=== PATIENT | female | born 1955 | race Caucasian/White ===

== ENCOUNTER → 2024-02-22 08:53 | Outpatient (REF) | payer MEDICARE, OTHER, SELFPAY | LOC: PAVMRI 08:53 | PROVIDERS: ATTENDING PHYSICIAN Internal Medicine; FAMILY PHYSICIAN Internal Medicine | DX: R51.9 Headache, unspecified (principal) | CPT/HCPCS: 70553; A9575 ==

== ENCOUNTER → 2024-02-24 08:26 | Outpatient (REF) | payer MEDICARE, OTHER, SELFPAY | LOC: RAD 08:26 | PROVIDERS: ATTENDING PHYSICIAN Internal Medicine | DX: R14.0 Abdominal distension (gaseous) (principal) | CPT/HCPCS: 76700 ==

== ENCOUNTER → 2024-02-25 14:56 | Outpatient (REF) | payer MEDICARE, OTHER, SELFPAY | LOC: WDC 14:56 | PROVIDERS: ATTENDING PHYSICIAN Obstetrics & Gynecology; FAMILY PHYSICIAN Internal Medicine | DX: Z12.31 Encounter for screening mammogram for malignant neoplasm of breast (principal) | CPT/HCPCS: 77063; 77067 ==

== ENCOUNTER 2024-08-07 00:24 | Emergency (ER) | payer MEDICARE, OTHER, SELFPAY ==
[2024-08-07 00:26] VITALS: BP 190/102
[2024-08-07 00:52] VITALS: BMI 32.7
[2024-08-07 00:54] VITALS: BP 123/104
[2024-08-07 00:55] LABS: % Basophils 0.6 % (0-2); % Eosinophils 0.1 % (0-6); % Immature Granulocytes 3.9 % (0-0.5); % Lymphocytes 11.1 % (20.5-51.1); % Monocytes 14.3 % (1.7-9.3); Absolute Immature Granulocytes 0.3 10^3/uL (0-0.05); Absolute Lymphocytes 0.8 10^3/uL (1.2-3.4); Absolute Neutrophils 4.8 10^3/uL (1.4-6.5); Hematocrit 39.1 % (37.0-47.0); Hemoglobin 13.6 g/dL (12.0-16.0); Mean Corp Hgb Conc. 34.8 g/dL (33.0-37.0); Mean Corpuscular Hgb 29.5 pg (27.0-31.0); Mean Corpuscular Volume 84.8 fL (81.0-99.0); Mean Platelet Volume 10.4 fL (7.4-10.4); Nucleated Red Blood Cells % 0 %; Platelet Count 259 10^3/uL (130-400); Red Blood Cell Count 4.61 10^6/uL (4.20-5.40); Red Cell Dist. Width 12.8 % (11.5-14.5); White Blood Cell Count 6.9 10^3/uL (4.8-10.8)
--- NOTE | 2024-08-07 00:58 | ED.GENMED ---
History of Present Illness
<AARON Brown - Last Filed: 08/07/24 03:13>
General
Chief Complaint: Breathing Problem
Source: patient
Exam Limitations: none
Time Seen by Provider: 08/07/24 00:39
Nursing documentation reviewed up to this point in time: agreed with
History of Present Illness
History of Present Illness:
Pt is a 68 yo F with a PMH of asthma, GERD, ADHD, fibromyalgia, anxiety, and seasonal and drug allergies who presents to the ER from home c/o dyspnea, cough, and congestion x 1 week. She explains that she was walking on Wednesday and all of the sudden
became short of breath, she explains she thought perhaps she was having an allergic asthma exacerbation, so returned home and used her albuterol inhaler with some relief. The next day she noticed some congestion, and feared she may be ill, so
contacted her family doctor who prescribed a Medrol dose pack. After a day, this was minimally effective, so added doxycycline. When symptoms persisted, her doctor switched her to Prednisone 40 mg BID which she started on Wednesday. Tonight, she
tried a nebulizer treatment at 23:30 which she states was ineffective. She notes that it appears her nebulizer solution may have in 2021, which she found to be ineffective. She also notes some mild chills on occasion, but denies fevers. She
presents tonight because she says her symptoms have not improved and notes 'my doctor didn't answer'. She explains that usually when things like this happen, her doctor will prescribe a 'high dose' course of prednisone, starting with 4 pills per day
and tapering down. She notes she did a COVID test at home which was negative. She denies sick contacts but does note that last weekend she held a gathering at her home for the first time in a long time. She denies fevers, nausea, vomiting, changes
to her bowel movements, ESCOBAR, dizziness, or any other associated symptoms.
Past History
<AARON Brown - Last Filed: 08/07/24 03:13>
Past History
ED Past Medical History: Asthma, Fibromyalgia, GERD, HTN, Hypercholesterolemia, Psychiatric (Depression) and Other (Lymes disease X2 , Sleep apnea with 2 surgery for this, gastroparesis, chronic abdominal pain, chronic pain syndrome)
ED Past Surgical History: Cardiac (Stent RCA Nov 2016), Cholecystectomy, Orthopedic (Bilateral knee replacement, right foot surgery), Tonsilectomy and Other (Breast reduction surgery, throat surgery, Tummy tuck)
Patient has exhibited threatening behavior?: No
Social History
Tobacco: Former smoker
Alcohol: Occasional
Drug: None and Other (Medical marijuana for chronic pain)
Personal:
Living: alone
Employment: Not employed
Family History
Family History: CAD and Other
Review of Systems
<ST KevinHI - Last Filed: 08/07/24 03:13>
Review of Systems
All Other Systems: ROS reviewed and negative except as documented in HPI and ROS
Phy Exam
<Licha Pope [facility] - Last Filed: 08/07/24 03:13>
General Physical Exam
General Presentation: well appearing
General age: appears stated age
General Skin: warm and dry
General Habitus: normal and elderly
General Mental: alert
General Hydration: appears well hydrated
Cardiovascular Exam
Cardiovascular Exam: regular rate/rhythm
Heart Sounds: normal
Pulmonary Exam
Pulmonary Exam: generalized wheezing
Oxygen Status: room air
Cough: non productive cough
Breath Sounds: Wheeze: generalized
Gastrointestinal Exam
Gastrointestinal Exam: normal bowel sounds
Scores
<Sendy Israel DO - Last Filed: 08/07/24 03:33>
Heart Failure Risk
Heart Failure Risk Score: Yes
History of Stroke or TIA: Yes
History of intubation for respiratory distress: No
Heart rate on ED arrival >/= 110: No
SaO2 <90% on arrival on room air: No
HR >/=110 during 3min walk test (or too ill to perform test): No
ECG has acute ischemic changes: No
Urea >/=12mmol/L (BUN 33.6mg/dL): No
Serum CO2>/=35mmol/L: No
Troponin I or T elevated to PR Level (0.4mg/dL): No
NT-proBNP >/=5,000ng/L (5,000pg/ml): No
HF Risk Score: 1
Admission Status: MEDIUM RISK 5.1% Consider observation or discharge to home with homecare & f/u visit to PCP/[facility], or SNF for treatment
Sepsis
<AARON Brown - Last Filed: 08/07/24 03:13>
Sepsis Screening
Sepsis Assessment: Sepsis Ruled Out
Sepsis Screen
Sepsis Screen: Sepsis Ruled Out
Date: 08/07/24
Time: 03:13
<Sendy Israel DO - Last Filed: 08/07/24 03:33>
Sepsis Screen
Sepsis Screen: Sepsis Ruled Out
Date: 08/07/24
Time: 03:14
Course
<AARON Brown - Last Filed: 08/07/24 03:13>
Orders/Labs/Results
Orders:
Orders
08/07/24 00:45
CR Chest - 2 Views Urgent
Comment:
Reason For Exam: cough, SOB
08/07/24 00:46
Electrocardiogram (*1) Urgent
Reason for Study: Shortness of Breath
EKG- Treatment ONCE
08/07/24 00:49
Complete Blood Count/With Diff Urgent
Comprehensive Metabolic Panel Urgent
Lactic Acid Q4H
Comment: CANCEL 2nd LACTIC ACID IF 1st LACTIC ACID IS LESS THAN 2
NT-proBNP Urgent
08/07/24 00:53
COVID-19 Antigen Urgent
Source: Nasal Swab
Influenza A+B Rapid Molecular Urgent
JUAN Source: Nasal Swab
Specimen Description:
08/07/24 01:19
Albuterol Sulfate [Ventolin Nebules] 7.5 mg INH R NOW STA
Dexamethasone Sod Phosphate [Decadron] 10 mg IV NOW STA
Ipratropium Nebs [Atrovent Nebules] 0.5 mg INH R NOW STA
Abnormal Lab Results
08/07/24
00:49
Abs Immat Gran (auto) 0.3 H 10^3/uL
(0-0.05)
Absolute Lymphs (auto) 0.8 L 10^3/uL
(1.2-3.4)
Absolute Monos (auto) 1.0 H 10^3/uL
(0.1-0.6)
Immature Gran % 3.9 H %
(0-0.5)
Lymphocytes % 11.1 L %
(20.5-51.1)
Monocytes % 14.3 H %
(1.7-9.3)
Potassium 3.0 L mmol/L
(3.5-5.1)
Chloride 108 H mmol/L
(98-107)
BUN 21 H mg/dl
(7-17)
Glucose 122 H mg/dl
(70-99)
08/07/24 00:49
08/07/24 00:49
Vital Signs
Initial and Last Documented VS:
Initial Vital Signs
Temp Pulse Resp BP Pulse Ox
99 F 98 26 190/102 96
08/07/24 00:26 08/07/24 00:26 08/07/24 00:26 08/07/24 00:26 08/07/24 00:26
Last Documented Vital Signs
Temp Pulse Resp BP Pulse Ox
99 F 87 20 190/102 95
08/07/24 00:26 08/07/24 00:49 08/07/24 00:49 08/07/24 00:26 08/07/24 00:49
<Sendy Israel, - Last Filed: 08/07/24 03:33>
Orders/Labs/Results
Orders:
Orders
08/07/24 00:45
CR Chest - 2 Views Urgent
Comment:
Reason For Exam: cough, SOB
08/07/24 00:46
Electrocardiogram (*1) Urgent
Reason for Study: Shortness of Breath
EKG- Treatment ONCE
08/07/24 00:49
Complete Blood Count/With Diff Urgent
Comprehensive Metabolic Panel Urgent
Lactic Acid Q4H
Comment: CANCEL 2nd LACTIC ACID IF 1st LACTIC ACID IS LESS THAN 2
NT-proBNP Urgent
08/07/24 00:53
COVID-19 Antigen Urgent
Source: Nasal Swab
Influenza A+B Rapid Molecular Urgent
JUAN Source: Nasal Swab
Specimen Description:
08/07/24 01:19
Albuterol Sulfate [Ventolin Nebules] 7.5 mg INH R NOW STA
Dexamethasone Sod Phosphate [Decadron] 10 mg IV NOW STA
Ipratropium Nebs [Atrovent Nebules] 0.5 mg INH R NOW STA
Abnormal Lab Results
08/07/24
00:49
Abs Immat Gran (auto) 0.3 H 10^3/uL
(0-0.05)
Absolute Lymphs (auto) 0.8 L 10^3/uL
(1.2-3.4)
Absolute Monos (auto) 1.0 H 10^3/uL
(0.1-0.6)
Immature Gran % 3.9 H %
(0-0.5)
Lymphocytes % 11.1 L %
(20.5-51.1)
Monocytes % 14.3 H %
(1.7-9.3)
Potassium 3.0 L mmol/L
(3.5-5.1)
Chloride 108 H mmol/L
(98-107)
BUN 21 H mg/dl
(7-17)
Glucose 122 H mg/dl
(70-99)
08/07/24 00:49
08/07/24 00:49
Vital Signs
Initial and Last Documented VS:
Initial Vital Signs
Temp Pulse Resp BP Pulse Ox
99 F 98 26 190/102 96
08/07/24 00:26 08/07/24 00:26 08/07/24 00:26 08/07/24 00:26 08/07/24 00:26
Last Documented Vital Signs
Temp Pulse Resp BP Pulse Ox
99 F 87 20 190/102 95
08/07/24 00:26 08/07/24 00:49 08/07/24 00:49 08/07/24 00:26 08/07/24 00:49
<Sendy Israel, DO - Last Filed: 08/07/24 03:33>
*Radiology
Radiology exam reviewed: preliminary read by ED provider (Chest x-ray is unremarkable. Clear lung tafoya. Unchanged from previous 2020.)
*Pulse Oximetry
Patient hypoxic: no
*EKG
Interpreted by ED Provider?: Yes
Interpretation: normal
Comparison EKG: no changes (Unchanged from previous 2020)
Rate: normal
Rhythm: sinus and PAC's
[place]: normal axis
Interval: normal interval
QRS Pattern: normal QRS
Ischemia: no ischemia
*Curtain Cutter Interpretation
Rate: normal
Interpretation: normal
Rhythm: sinus, PAC's and PVC's
*Critical Care Note
Total Time (30-74mins, 75-104mins- exclusive of procedures): Not Applicable
<AARON Brown - Last Filed: 08/07/24 03:13>
Update Note
Update Note:
Patient is feeling much better after receiving IV Decadron and nebulizer treatment
ED Attending Note
<AARON Brown - Last Filed: 08/07/24 03:13>
-
Portions of this chart may have been created with voice recognition software.� Occasional wrong word or��sound alike� substitutions may have occurred due to the inherent limitations of voice recognition software.
<Sendy Israel DO - Last Filed: 08/07/24 03:33>
ED Attending Note
Patient seen and examined by attending physician: Yes
I performed the substantive portion of visit, reviewed & personally made and approve the management plan that is documented in note by myself or JUAN.: Yes
ED Attending Note:
This is a 68-year-old woman with history of intermittent asthma, seasonal allergies, GERD, hypertension, CAD with prior history of stents. She states asthma is generally well-controlled with exacerbations occurring with URIs. She complains of URI
that began earlier in the week with nasal congestion, cough. Spoke with her PCP on August 02 and a Medrol Dosepak was called to her pharmacy. With worsening symptoms she was evaluated by her PCP on August 04 and was started on
doxycycline as well as 4-day course of prednisone 40 mg twice daily. Along with this she has been using her albuterol inhaler and initially was using her nebulizer unit but then noted that her Nebules were not albuterol but instead saline solution.
She has not had a fever, she does note moderate nasal congestion and continued cough, wheezing, worse throughout the day today. She denies leg pain or swelling, denies chest pain. Cough has been hacking, nonproductive.
Home COVID testing has been negative.
No recent travel nor close contacts with similar symptoms.
Symptoms feel very similar to previous episodes of asthma exacerbation.
GENERAL: 68-year-old woman appears her stated age, awake and alert, pleasant. Noted to have moderate nasal, stuffy voice and frequent dry hacking cough with mild tachypnea but able to speak in full sentences. Moderately hypertensive and
questionable low-grade fever with oral temperature 99 �F. Afebrile upon recheck.
EYE: pupils equal. anicteric
NECK: Supple, nontender, no meningismus, no significant adenopathy. No JVD.
ENT: posterior pharynx is without injection or edema, scant clear to pearly postnasal drip is noted, oral mucosa is moist. TM clear b/l, moderately boggy pale blue turbinates with mild clear rhinorrhea.
CARDIAC: Regular rate and rhythm. no murmur.
LUNGS: Mild resting tachypnea with scattered expiratory wheezing bilaterally, no rales or rhonchi.
ABDOMEN: Soft, nondistended, without focal tenderness
NEUROLOGICAL: Alert and oriented x3, no focal neuro deficits.
SKIN: Warm and dry, normal color, skin intact. No rash.
MUSCULOSKELETAL: No C/C/E. peripheral pulses are full and equal b/l. No palpable tenderness.
PSYCH: Normal and appropriate interaction.
Concern for exacerbation of asthma, pneumonia. With history of CAD must also consider CHF however patient reports no prior history of CHF, no history of cardiomyopathy.
EKG is reassuring, unchanged from previous.
Will check labs including BNP.
Will check chest x-ray.
Will give hour-long nebulizer as well as an IV dose of Decadron.
03:20
Patient feeling markedly improved with marked improvement in cough, no further dyspnea.
Lungs with marked improvement in air movement and only scant end expiratory scattered wheezing.
She does continue with moderate nasal congestion but able to speak in full sentences. She remains afebrile.
Initial hypertension has markedly improved.
Chest x-ray is unremarkable, no evidence of infiltrate nor CHF. Overall similar and unchanged from previous 2020.
Labs are unremarkable save for mild hypokalemia at 3.0. BNP 430.
Will repeat potassium orally.
Patient eager to be discharged to home.
Recommend continuing doxycycline until finished, continue current course of prednisone 40 mg twice daily over the next 2 days then will transition to prednisone taper at 50 mg daily for 3 days�then taper from there.
Recommend continuing albuterol inhaler versus albuterol nebulizer every 4 hours as needed for cough, wheezing.
Okay to add antihistamine such as Ne and continue steroid nasal spray. Discussed importance of avoiding decongestants.
Stay well-hydrated on a daily basis.
Prompt follow-up with PCP for recheck.
Return precautions discussed.
Discharge Plan
Departure
Patient Disposition: Home (Routine Discharge)
Date of Disposition: 08/07/24
Time of Disposition: 03:14
Patient with high blood pressure during this ER visit?: Yes
Discharge Problem:
Acute asthma exacerbation
Instructions: Asthma, Adult (DC)
Prescriptions:
New
prednisone 10 mg Tablet
See Rx Instructions .ROUTE .COMPLEX Qty: 45 0RF
Rx Instructions:
Take By Mouth:
50 mg daily x3 days, 40 mg daily x3 days,
30 mg daily x3 days, 20 mg daily x3 days,
10 mg daily x3 days
No Action
albuterol sulfate 1 PUFF HFA aerosol inhaler
2 puff inhalation R Q4 PRN (Reason: sob/wheezing)
dextroamphetamine-amphetamine 15 MG tablet
15 mg PO DAILY PRN (Reason: focus)
Patient Comments:
10/30/2022: last filled 10/28/22, 20 tabs for 20 days from [id number]
fluticasone propion-salmeterol [Advair HFA] 1 PUFF HFA aerosol inhaler
2 puff inhalation R BID PRN (Reason: Lung/breathing issues)
Xolair 75 MG/VIAL recon soln
120 mg SQ MONTHLY
Patient Comments:
x2
tramadol 50 mg tablet
50 mg PO TID PRN (Reason: moderate pain)
Patient Comments:
10/30/2022: last filled 10/10/22, 90 tabs for 30 days from [id number]
gabapentin 100 mg capsule
200 mg PO HS
Xhance 93 mcg/actuation aerosol breath activated
1 spray INTRANASAL BID
amoxicillin-pot clavulanate 875-125 mg tablet
1 tab PO Q12H Qty: 10 0RF
Referrals:
Calvin Moran MD [Family Provider] - Call in 1-3 days for appt
Interventions
Interventions:
*Risk Screen - Suicide Last Done: 08/07/24 00:26
*General Assessment Last Done: 08/07/24 00:52
*Neglect/Abuse Screening Last Done: 08/07/24 00:26
*ED- Fall Risk Assessment Last Done: 08/07/24 00:52
*ED COVID-19 Vaccine History Last Done: 08/07/24 00:59
ED- Cardiac Assessment Last Done: 08/07/24 00:56
ED- Pulmonary Assessment Last Done: 08/07/24 00:56
Discharge Date and Time
Print Language: CAMEROONIAN
[2024-08-07 01:07] LABS: Lactic Acid 1.3 mmol/L (0.7-2.0)
[2024-08-07 01:15] LABS: ALT (SGPT) 23 U/L (0-35); AST (SGOT) 24 U/L (14-36); Albumin 3.9 g/dl (3.5-5.0); Alkaline Phosphatase 59 U/L (38-126); Blood Urea Nitrogen 21 mg/dl (7-17); Carbon Dioxide 26 mmol/L (22-30); Chloride 108 mmol/L (98-107); Estimated Creatinine Clearance 74 ml/min; Glucose 122 mg/dl (70-99); Sodium 138 mmol/L (135-145); Total Bilirubin 0.5 mg/dl (0.2-1.3); Total Protein 6.5 g/dl (6.3-8.2); eGFR > 60.00
[2024-08-07 01:16] LABS: NT-proBNP 435 pg/ml
[2024-08-07 01:26] LABS: COVID-19 Antigen Negative (Negative)
[2024-08-07] MEDS: VENTOLIN NEBULES 7.5 MG INH (01:34)
[2024-08-07] MEDS: DECADRON 10 MG IV (01:37)
[2024-08-07] MEDS: ATROVENT NEBULES 0.5 MG INH (01:38)
[2024-08-07 02:00] VITALS: BP 152/68
[2024-08-07] MEDS: KCL 20 MEQ PO (03:22)
== END 2024-08-07 03:55 | disposition home or self-care (01) ==
LOC: EMR 00:24
PROVIDERS: EMERGENCY PHYSICIAN Emergency Medicine; FAMILY PHYSICIAN Internal Medicine
DX: J45.901 Unspecified asthma with (acute) exacerbation (principal); R68.83 Chills (without fever); Z11.52 Encounter for screening for COVID-19; K21.9 Gastro-esophageal reflux disease without esophagitis; R10.9 Unspecified abdominal pain; F90.9 Attention-deficit hyperactivity disorder, unspecified type; M79.7 Fibromyalgia; F41.9 Anxiety disorder, unspecified; G47.30 Sleep apnea, unspecified; I25.10 Atherosclerotic heart disease of native coronary artery without angina pectoris; E78.00 Pure hypercholesterolemia, unspecified; G89.4 Chronic pain syndrome; I10 Essential (primary) hypertension; F32.A Depression, unspecified; F43.10 Post-traumatic stress disorder, unspecified; K31.84 Gastroparesis; Z90.49 Acquired absence of other specified parts of digestive tract; Z96.653 Presence of artificial knee joint, bilateral; Z95.5 Presence of coronary angioplasty implant and graft; Z87.891 Personal history of nicotine dependence; Z88.6 Allergy status to analgesic agent; Z88.1 Allergy status to other antibiotic agents; Z91.040 Latex allergy status; Z88.5 Allergy status to narcotic agent; Z88.8 Allergy status to other drugs, medicaments and biological substances; Z91.048 Other nonmedicinal substance allergy status
CPT/HCPCS: 99284; 96374; 94644; 94640; 71046; 80053; 83605; 83880; 85025; 87502; 87811; 93005

== ENCOUNTER 2024-09-12 03:59 | Emergency (ER) | payer MEDICARE, OTHER, SELFPAY ==
[2024-09-12 04:01] VITALS: BP 188/114
[2024-09-12 04:21] VITALS: BMI 32.7
[2024-09-12 04:28] VITALS: BP 190/92
--- NOTE | 2024-09-12 04:38 | ED.GENMED ---
History of Present Illness
General
Chief Complaint: Headache
Source: patient and previous hospital records (ED visit July of this year with complaints of asthma exacerbation)
Exam Limitations: none
Time Seen by Provider: 09/12/24 04:24
Nursing documentation reviewed up to this point in time: agreed with
History of Present Illness
History of Present Illness:
This is a 68-year-old woman with history of intermittent asthma, seasonal allergies, GERD, hypertension, CAD with prior history of stents. She initially presented to this ED August 07 with complaints of acute exacerbation of asthma with URI symptoms
that began earlier in the week. She was noted to have moderately elevated blood pressure, wheezing.
BP improved with nebulizer treatment and improvement in symptoms.
Unremarkable laboratory studies as well as unremarkable chest x-ray.
Since that ED visit patient has been following regularly with her PCP with ongoing sinus issues, chronic sinus headache, sinus congestion and has been treated with several rounds of antibiotics as well as oral steroids.
She has an initial appointment with ENT specialist September 18 and has an appointment for CAT scan of her sinuses later today.
A week and a half ago she suffered a mechanical fall, falling backward with lightly striking the back of her head. She denies loss of consciousness, denies dizziness nor lightheadedness but notes increase in her headache over the past week and a
half after that fall. She denies neck nor back pain. She has not had a fever nor chills. No vision difficulty. She admits to occasional nausea without vomiting. No chest nor abdominal pain.
Currently on a course of doxycycline for sinusitis and was also started on Lexapro.
She notes her blood pressure has been elevated over the past month. She is chronically maintained on Bystolic 5 mg daily. No recent change in antihypertensives. Upon review of external medical summary patient has history of accelerated essential
hypertension diagnoses on multiple outpatient visits over the past several years.
Cough and shortness of breath have markedly improved/resolved.
No change in weight. She denies leg pain or swelling.
Past History
Past History
ED Past Medical History: Asthma, Fibromyalgia, GERD, HTN, Hypercholesterolemia, Psychiatric (Depression) and Other (Lymes disease X2 , Sleep apnea with 2 surgery for this, gastroparesis, chronic abdominal pain, chronic pain syndrome; chronic
headaches)
ED Past Surgical History: Cardiac (Stent RCA Nov 2016), Cholecystectomy, Orthopedic (Bilateral knee replacement, right foot surgery), Tonsilectomy and Other (Breast reduction surgery, throat surgery, Tummy tuck)
Patient has exhibited threatening behavior?: No
Social History
Tobacco: Former smoker
Alcohol: Occasional
Drug: None and Other (Medical marijuana for chronic pain)
Personal:
Living: alone
Employment: Not employed
Family History
Family History: CAD and Other
Phy Exam
Physical Exam
Physical Exam:
GENERAL: 68-year-old woman appears her stated age, awake and alert, appears mildly anxious but overall in no acute distress. Mild nasal, stuffy voice is noted. Moderately hypertensive. Afebrile.
EYE: pupils equal and reactive. Extraocular muscles intact. Anicteric
NECK: Supple, nontender, no meningismus, no significant adenopathy. No midline bony tenderness. Full range of motion without difficulty nor pain.
ENT: posterior pharynx is clear, oral mucosa is moist. TM clear b/l, nares have moderately boggy turbinates with white pearly mucopus within the left nostril.
CARDIAC: Regular rate and rhythm. no murmur.
LUNGS: Clear breath sounds bilaterally, no acute respiratory distress, no wheezes/rales/rhonchi
ABDOMEN: Soft, nondistended, without focal tenderness, no r/g, no cvat. normoactive BS.
NEUROLOGICAL: Alert and oriented x3, no focal neuro deficits. Gait is steady.
SKIN: Warm and dry, normal color, skin intact. No rash.
MUSCULOSKELETAL: No C/C/E. peripheral pulses are full and equal b/l. No palpable tenderness.
PSYCH: Normal and appropriate interaction.
Course
Orders/Labs/Results
Orders:
Orders
09/12/24 04:37
CT Head W/o Iv Contrast Urgent
Comment:
Reason For Exam: persistent headache x 1 month
Diphenhydramine [Benadryl] 25 mg IV NOW STA
Metoclopramide [Reglan] 10 mg IV NOW STA
09/12/24 04:51
Complete Blood Count/With Diff Urgent
Comprehensive Metabolic Panel Urgent
Abnormal Lab Results
09/12/24
04:51
Abs Immat Gran (auto) 0.2 H 10^3/uL
(0-0.05)
Absolute Monos (auto) 0.8 H 10^3/uL
(0.1-0.6)
Immature Gran % 2.8 H %
(0-0.5)
Monocytes % 10.3 H %
(1.7-9.3)
Glucose 105 H mg/dl
(70-99)
Total Protein 6.0 L g/dl
(6.3-8.2)
09/12/24 04:51
09/12/24 04:51
Vital Signs
Initial and Last Documented VS:
Initial Vital Signs
Temp Pulse Resp BP Pulse Ox
98.2 F 74 26 188/114 97
09/12/24 04:01 09/12/24 04:01 09/12/24 04:01 09/12/24 04:01 09/12/24 04:01
Last Documented Vital Signs
Temp Pulse Resp BP Pulse Ox
98.2 F 74 26 190/92 95
09/12/24 04:01 09/12/24 04:01 09/12/24 04:01 09/12/24 04:28 09/12/24 05:03
MDM/Problems Addressed
Differential Diagnosis Includes:
Concern for chronic sinusitis, chronic sinus headache versus tension headache. With history of fall and head injury a week and a half ago must also consider closed head injury thus we will check CT of the head.
Patient noted to be moderately hypertensive and similar hypertension noted on previous visit in July and according to prior records has had similar elevated blood pressure on previous visits.
Will check labs, assess for endorgan damage.
Will trial an IV dose of Reglan and Benadryl for headache and will check CT of the head.
MDM/Problems Addressed:
Hypertension, acute on chronic headache, recent fall with head injury.
Chronic conditions affecting care: HTN, CAD, Neurological disorder (Chronic headaches) and Psychiatric illness
Acute Exacerbation and/or Progression of Chronic Illness: HTN and Neurological disorder (Chronic headache)
*Radiology
Radiology exam reviewed: radiology read reviewed (CAT scan shows chronic microvascular disease with old left MCA infarct. Right parietal hemangioma unchanged from previous CT 2020.)
*Pulse Oximetry
SaO2: 95
Oxygen Mode of Delivery: Room air
Patient hypoxic: no
*Critical Care Note
Total Time (30-74mins, 75-104mins- exclusive of procedures): Not Applicable
Update Note
Update Note:
Patient reassessed.
Resting comfortably with near complete relief of headache.
Blood pressure improving, systolic now at 150-160.
CT of the head shows chronic microvascular changes, old left MCA territory infarct as well as right parietal hemangioma all unchanged from previous CT 2020 and upon review of records similar to MRI of the brain performed February 2024.
Labs are unremarkable.
Patient does note somewhat chronic frequent headaches and I suspect her headaches are migraine versus sinus headache versus a combination of both.
She also has longstanding history of accelerated hypertension. Appears to have adverse reactions to multiple different medications thus recommend she follow-up with her PCP for recheck and BP med adjustment.
Recommend she complete CT of the sinuses that is scheduled for today and follow-up with ENT as scheduled September 18.
Could consider neurology evaluation regarding chronic headaches as well but can discuss further with her PCP.
ED Attending Note
-
Portions of this chart may have been created with voice recognition software.� Occasional wrong word or��sound alike� substitutions may have occurred due to the inherent limitations of voice recognition software.
Discharge Plan
Departure
Patient Disposition: Home (Routine Discharge)
Date of Disposition: 09/12/24
Time of Disposition: 06:28
Patient with high blood pressure during this ER visit?: No
Condition: Good
Discharge Problem:
chronic migraine vs sinus headache, Accelerated essential hypertension
Instructions: High blood pressure in adults, Migraines (DC)
Prescriptions:
No Action
albuterol sulfate 1 PUFF HFA aerosol inhaler
2 puff inhalation R Q4 PRN (Reason: sob/wheezing)
dextroamphetamine-amphetamine 15 MG tablet
15 mg PO DAILY PRN (Reason: focus)
Patient Comments:
10/30/2022: last filled 10/28/22, 20 tabs for 20 days from [facility]#[id number]
fluticasone propion-salmeterol [Advair HFA] 1 PUFF HFA aerosol inhaler
2 puff inhalation R BID PRN (Reason: Lung/breathing issues)
Xolair 75 MG/VIAL recon soln
120 mg SQ MONTHLY
Patient Comments:
x2
tramadol 50 mg tablet
50 mg PO TID PRN (Reason: moderate pain)
Patient Comments:
10/30/2022: last filled 10/10/22, 90 tabs for 30 days from [facility][id number]
gabapentin 100 mg capsule
200 mg PO HS
Xhance 93 mcg/actuation aerosol breath activated
1 spray INTRANASAL BID
amoxicillin-pot clavulanate 875-125 mg tablet
1 tab PO Q12H Qty: 10 0RF
prednisone 10 mg Tablet
See Rx Instructions .ROUTE .COMPLEX Qty: 45 0RF
Rx Instructions:
Take By Mouth:
50 mg daily x3 days, 40 mg daily x3 days,
30 mg daily x3 days, 20 mg daily x3 days,
10 mg daily x3 days
Referrals:
Zakrzewski,Calvin, MD [Family Provider, Internal Medicine] - Call in 1-3 days for appt
Activity Restrictions/Additional Instructions:
Continue current antibiotic until finished.
Continue current blood pressure medication/Bystolic 5 mg and follow-up with your PCP for recheck.
Follow-up with ENT specialist September 18 as already scheduled.
Interventions
Interventions:
*Risk Screen - Suicide Last Done: 09/12/24 04:01
*General Assessment Last Done: 09/12/24 04:21
*Neglect/Abuse Screening Last Done: 09/12/24 04:01
*ED- Fall Risk Assessment Last Done: 09/12/24 04:21
*ED COVID-19 Vaccine History Last Done: 09/12/24 04:21
ED- Neurological Assessment Last Done: 09/12/24 04:21
Discharge Date and Time
Print Language: ITALIAN
[2024-09-12] MEDS: REGLAN 10 MG IV (04:55)
[2024-09-12] MEDS: BENADRYL 25 MG IV (04:55)
[2024-09-12 05:00] LABS: Hematocrit 38.1 % (37.0-47.0); Hemoglobin 12.9 g/dL (12.0-16.0); Mean Corp Hgb Conc. 33.9 g/dL (33.0-37.0); Mean Corpuscular Volume 86.4 fL (81.0-99.0); Nucleated Red Blood Cells % 0 %; Platelet Count 273 10^3/uL (130-400); Red Cell Dist. Width 13.1 % (11.5-14.5)
[2024-09-12 05:34] LABS: ALT (SGPT) 24 U/L (0-35); AST (SGOT) 24 U/L (14-36); Albumin 3.6 g/dl (3.5-5.0); Alkaline Phosphatase 75 U/L (38-126); Blood Urea Nitrogen 16 mg/dl (7-17); Calcium 8.9 mg/dl (8.4-10.2); Carbon Dioxide 26 mmol/L (22-30); Chloride 107 mmol/L (98-107); Estimated Creatinine Clearance 86 ml/min; Glucose 105 mg/dl (70-99); Potassium 4.1 mmol/L (3.5-5.1); Sodium 138 mmol/L (135-145); Total Protein 6.0 g/dl (6.3-8.2); eGFR > 60.00
[2024-09-12 06:01] VITALS: BP 165/82
== END 2024-09-12 07:09 | disposition home or self-care (01) ==
LOC: EMR 03:59
PROVIDERS: EMERGENCY PHYSICIAN Emergency Medicine; FAMILY PHYSICIAN Internal Medicine
DX: R51.9 Headache, unspecified (principal); R09.89 Other specified symptoms and signs involving the circulatory and respiratory systems; I10 Essential (primary) hypertension; J45.20 Mild intermittent asthma, uncomplicated; K21.9 Gastro-esophageal reflux disease without esophagitis; I25.10 Atherosclerotic heart disease of native coronary artery without angina pectoris; G93.89 Other specified disorders of brain; R10.9 Unspecified abdominal pain; M79.7 Fibromyalgia; E78.00 Pure hypercholesterolemia, unspecified; G47.30 Sleep apnea, unspecified; F32.A Depression, unspecified; F12.90 Cannabis use, unspecified, uncomplicated; G89.4 Chronic pain syndrome; K31.84 Gastroparesis; Z79.899 Other long term (current) drug therapy; Z91.81 History of falling; Z95.5 Presence of coronary angioplasty implant and graft; Z96.653 Presence of artificial knee joint, bilateral; Z87.891 Personal history of nicotine dependence; Z90.49 Acquired absence of other specified parts of digestive tract; Z88.5 Allergy status to narcotic agent; Z88.8 Allergy status to other drugs, medicaments and biological substances; Z88.6 Allergy status to analgesic agent; Z88.1 Allergy status to other antibiotic agents; Z91.040 Latex allergy status
CPT/HCPCS: 99284; 96374; 96375; 70450; 80053; 85025

== ENCOUNTER 2024-09-12 21:24 | Emergency (ER) | payer MEDICARE, OTHER, SELFPAY ==
[2024-09-12 21:33] VITALS: BP 149/116
[2024-09-12 23:20] VITALS: BP 169/88
[2024-09-12 23:35] LABS: Hematocrit 42.0 % (37.0-47.0); Hemoglobin 14.4 g/dL (12.0-16.0); Mean Corp Hgb Conc. 34.3 g/dL (33.0-37.0); Mean Corpuscular Volume 86.1 fL (81.0-99.0); Nucleated Red Blood Cells % 0 %; Platelet Count 296 10^3/uL (130-400); Red Cell Dist. Width 13.2 % (11.5-14.5)
[2024-09-13] VITALS: BP 158/87
[2024-09-13] LABS: ALT (SGPT) 29 U/L (0-35); AST (SGOT) 31 U/L (14-36); Albumin 4.3 g/dl (3.5-5.0); Alkaline Phosphatase 73 U/L (38-126); Blood Urea Nitrogen 12 mg/dl (7-17); Calcium 9.0 mg/dl (8.4-10.2); Carbon Dioxide 26 mmol/L (22-30); Chloride 106 mmol/L (98-107); Glucose 112 mg/dl (70-99); Potassium 4.1 mmol/L (3.5-5.1); Sodium 138 mmol/L (135-145); Total Protein 7.0 g/dl (6.3-8.2); eGFR > 60.00
[2024-09-13] MEDS: REGLAN 10 MG IV (00:22)
[2024-09-13] MEDS: TORADOL 15 MG IV (00:22)
[2024-09-13] MEDS: BENADRYL 25 MG IV (00:22)
[2024-09-13 01:04] VITALS: BP 167/82
--- NOTE | 2024-09-13 01:48 | EDRN ---
Patient reports feeling better and ready to go home, Dr. Lima aware
--- NOTE | 2024-09-13 01:50 | ED.GENMED ---
History of Present Illness
General
Chief Complaint: Blood Pressure Problem
Source: patient and family
Exam Limitations: none
Time Seen by Provider: 09/13/24 00:02
Nursing documentation reviewed up to this point in time: agreed with
History of Present Illness
History of Present Illness:
Note:
CHIEF COMPLAINT(S)
headache, elevated blood pressure,
HISTORY OF PRESENT ILLNESS
The patient is a 68-year-old female presenting with a headache associated with heartburn and chest congestion. The patient reports that this started as an allergic reaction weeks ago, resulting in significant congestion and difficulty breathing,
prompting an earlier visit to the emergency department. At that time, her blood pressure was recorded at 184/111 mmHg. She was administered intravenous diphenhydramine and blood pressure medications, which reduced her blood pressure to 160 mmHg. The
patient was discharged with instructions to take antihypertensive medication, but she reports not having the medication. Subsequently, she has experienced recurrent headaches, along with fluctuating blood pressure readings.
The patient mentions that she attempted to contact her regular physician and aerial crop duster without immediate success. She acknowledges a plan to see a aerial crop duster in the coming days and requests a temporary antihypertensive treatment to manage her
blood pressure until then.
Review of Systems includes headache, subacute chest congestion, and difficulty breathing. She reports no relief following previous treatment for her headache.
EXTERNAL RECORDS REVIEWED
The patient referred to a recent visit for imaging studies, though results were not yet provided for interpretation.
PHYSICAL EXAM
- Nursing notes reviewed and vital signs reviewed.
- No physical exam findings were discussed in detail during conversation.
PROBLEM LIST
Acute:
- Headache
- Chest congestion
- Elevated blood pressure
- Allergic reaction
Chronic:
- Hypertension (previously diagnosed)
PLAN
- Administer a short-term prescription for hydrochlorothiazide to manage elevated blood pressure.
- Address headache with treatment similar to previous ER visit, avoiding narcotics.
- Encourage follow-up with the aerial crop duster as planned.
DIFFERENTIAL DIAGNOSIS
The Differential Diagnosis includes, in no particular order and is not limited to:
- Hypertensive urgency
- Allergic reaction
- Migraine or tension-type headache
- Cluster headaches
- Gastroesophageal reflux disease with associated headache.
Disposition:
SUMMARY OF ENCOUNTER
The patient is a 68-year-old female with a history of hypertension who presented with an elevated blood pressure and headache. These symptoms prompted her visit to the emergency department. The patients headache has resolved after treatment. She was
seen in the emergency department yesterday where she underwent a full laboratory workup and a CAT scan as an outpatient after being discharged. The patient now reports feeling better after her symptoms were managed in the emergency department
tonight and expresses a desire to be discharged home.
DISPOSITION
Discharge.
PLAN
Prescribe an antihypertensive medication, likely lisinopril, to manage her blood pressure temporarily until her follow-up with her aerial crop duster.
MEDICATION RECONCILIATION
Prescription for lisinopril, an antihypertensive medication, was considered to manage her blood pressure temporarily.
MEDICAL DECISION MAKING
1. Number and Complexity of Problems Addressed: Chronic conditions affecting care include previously diagnosed hypertension. Differential Diagnosis includes hypertensive urgency and migraine or tension-type headache.
2. Data:
Category 1:
Non-emergency department records reviewed, including external records mentioned by the patient for a recent CAT scan.
Category 3:
Discussion of management with anticipated follow-up with the patients aerial crop duster.
3. Risk:
Prescription medication was prescribed: lisinopril was given to manage hypertension temporarily.
Consideration of Admission/Observation: Escalation of care including admission/observation was considered given the complexity and risk of the patients presenting complaint. However, ultimately the patient is deemed safe for outpatient management
with close follow-up, as her symptoms are well controlled upon reevaluation, her vitals are stable, and she is agreeable with discharge and reliable for follow-up.
DIAGNOSIS
Hypertensive urgency (I16.0).
Past History
Past History
ED Past Medical History: Asthma, Fibromyalgia, GERD, HTN, Hypercholesterolemia, Psychiatric (Depression) and Other (Lymes disease X2 , Sleep apnea with 2 surgery for this, gastroparesis, chronic abdominal pain, chronic pain syndrome; chronic
headaches)
ED Past Surgical History: Cardiac (Stent RCA Nov 2016), Cholecystectomy, Orthopedic (Bilateral knee replacement, right foot surgery), Tonsilectomy and Other (Breast reduction surgery, throat surgery, Tummy tuck)
Patient has exhibited threatening behavior?: No
Social History
Tobacco: Former smoker
Alcohol: Occasional
Drug: None and Other (Medical marijuana for chronic pain)
Personal:
Living: alone
Employment: Not employed
Family History
Family History: CAD and Other
Review of Systems
Review of Systems
Allergies reviewed?: Yes
All Other Systems: ROS reviewed and negative except as documented in HPI and ROS
Neurological: Reports headache
Psychiatric: Reports anxiety
Phy Exam
General Physical Exam
General Presentation: well appearing and no apparent distress
General Skin: warm and dry
General Habitus: normal
General Mental: alert
General Hydration: appears well hydrated
ENT Exam
ENT Exam: EOMI, pharynx normal, neck supple and normocephalic
Eye Exam
Eye Exam: PERRL, cornea clear and conjunctiva normal
Cardiovascular Exam
Cardiovascular Exam: regular rate/rhythm, no edema, no murmur and normal peripheral pulses
Pulmonary Exam
Pulmonary Exam: lungs clear, no respiratory distress, no rales, no crackles, no rhonchi, no stridor, no wheezing and no cough
Gastrointestinal Exam
Gastrointestinal Exam: normal bowel sounds, non tender, soft, no organomegaly, no pulsatile mass and non distended
Neurological Exam
Neurological Exam: alert, oriented x3, no motor deficits and speech normal
Musculoskeletal Exam
Musculoskeletal Exam: full ROM and no edema
Skin Exam
Skin Exam: normal color, warm/dry, no rash and no petechia
Psychiatric Exam
Psychiatric Exam: normal mood/affect
Course
Orders/Labs/Results
Orders:
Orders
09/12/24 21:32
EKG [Electrocardiogram (*1)] Urgent
Reason for Study: Hypertension, Benign
EKG- Treatment ONCE
09/12/24 23:19
CBC/With Diff [Complete Blood Count/With Diff] Urgent
CMP [Comprehensive Metabolic Panel] Urgent
09/13/24 00:18
Diphenhydramine [Benadryl] 25 mg IV NOW STA
Ketorolac [Toradol] 15 mg IV NOW STA
Metoclopramide [Reglan] 10 mg IV NOW STA
Abnormal Lab Results
09/12/24
23:19
Abs Immat Gran (auto) 0.1 H 10^3/uL
(0-0.05)
Absolute Monos (auto) 1.0 H 10^3/uL
(0.1-0.6)
Immature Gran % 1.3 H %
(0-0.5)
Monocytes % 9.7 H %
(1.7-9.3)
Glucose 112 H mg/dl
(70-99)
09/12/24 23:19
09/12/24 23:19
Vital Signs
Initial and Last Documented VS:
Initial Vital Signs
Temp Pulse Resp BP Pulse Ox
98.7 F 81 20 149/116 97
09/12/24 21:33 09/12/24 21:33 09/12/24 21:33 09/12/24 21:33 09/12/24 21:33
Last Documented Vital Signs
Temp Pulse Resp BP Pulse Ox
98.7 F 81 20 167/82 96
09/12/24 21:33 09/12/24 21:33 09/12/24 21:33 09/13/24 01:04 09/13/24 00:47
*Pulse Oximetry
SaO2: 96
Oxygen Mode of Delivery: Room air
Patient hypoxic: no
*Critical Care Note
Total Time (30-74mins, 75-104mins- exclusive of procedures): Not Applicable
ED Attending Note
-
Portions of this chart may have been created with voice recognition software.� Occasional wrong word or��sound alike� substitutions may have occurred due to the inherent limitations of voice recognition software.
Discharge Plan
Departure
Patient Disposition: Home (Routine Discharge)
Date of Disposition: 09/13/24
Time of Disposition: 01:55
Patient with high blood pressure during this ER visit?: Yes
Condition: Good
Discharge Problem:
Headache, Hypertension
Instructions: High Blood Pressure (DC), Headaches in adults, BLOOD PRESSURE
Prescriptions:
New
lisinopril 10 mg tablet
10 mg PO DAILY Qty: 14 0RF
No Action
albuterol sulfate 1 PUFF HFA aerosol inhaler
2 puff inhalation R Q4 PRN (Reason: sob/wheezing)
dextroamphetamine-amphetamine 15 MG tablet
15 mg PO DAILY PRN (Reason: focus)
Patient Comments:
10/30/2022: last filled 10/28/22, 20 tabs for 20 days from [facility]#[id number]
fluticasone propion-salmeterol [Advair HFA] 1 PUFF HFA aerosol inhaler
2 puff inhalation R BID PRN (Reason: Lung/breathing issues)
Xolair 75 MG/VIAL recon soln
120 mg SQ MONTHLY
Patient Comments:
x2
tramadol 50 mg tablet
50 mg PO TID PRN (Reason: moderate pain)
Patient Comments:
10/30/2022: last filled 10/10/22, 90 tabs for 30 days from [facility]#[id number]
gabapentin 100 mg capsule
200 mg PO HS
Xhance 93 mcg/actuation aerosol breath activated
1 spray INTRANASAL BID
amoxicillin-pot clavulanate 875-125 mg tablet
1 tab PO Q12H Qty: 10 0RF
prednisone 10 mg Tablet
See Rx Instructions .ROUTE .COMPLEX Qty: 45 0RF
Rx Instructions:
Take By Mouth:
50 mg daily x3 days, 40 mg daily x3 days,
30 mg daily x3 days, 20 mg daily x3 days,
10 mg daily x3 days
Referrals:
[facility] [Provider Group] - As needed
Calvin Moran MD [Family Provider, Internal Medicine]
Activity Restrictions/Additional Instructions:
Please follow-up with your aerial crop duster, as discussed
Thank You for choosing [facility].
It was a pleasure meeting you and taking part in your care. We hope for your continued healing and wellness.
Please read discharge instructions in their entirety. However, they are for general education and may not describe your exact diagnosis at discharge. Information on your ER visit and medical conditions were discussed with you along with appropriate
follow up information...
If indicated, please take your medications as instructed and indicated on discharge paperwork.
Please schedule a follow up appointment as directed. Call to schedule an appointment
Please return to the emergency department with ANY change in, persisting, or worsening of symptoms. If any of your symptoms do not improve, or persist, or become more severe within 6-12 hours, please return to the emergency department for further
care.
Please return to the emergency department if you develop a headache, neck pain/stiffness, fever greater than 100.4F, chest pain, shortness of breath, persistent nausea, vomiting, slurred speech, difficulty walking, numbness/tingling, weakness, signs
of infection or any other symptoms that are worrisome to you.
If you have any questions or concerns please do not hesitate to call the Hospital at or E-mail me directly at [email or web address]
Interventions
Interventions:
*Risk Screen - Suicide Last Done: 09/12/24 21:33
*General Assessment Last Done: 09/12/24 21:33
*Neglect/Abuse Screening Last Done: 09/12/24 21:33
*ED COVID-19 Vaccine History Last Done: 09/12/24 21:33
ED- Cardiac Assessment Last Done: 09/12/24 23:52
ED- Neurological Assessment Last Done: 09/12/24 23:52
ED- Pulmonary Assessment Last Done: 09/12/24 23:52
Discharge Date and Time
Print Language: BULGARIAN
== END 2024-09-13 02:16 | disposition home or self-care (01) ==
LOC: EMR 21:24
PROVIDERS: Emergency Medicine; EMERGENCY PHYSICIAN Student in an Organized Health Care Education/Training Program; FAMILY PHYSICIAN Internal Medicine
DX: R51.9 Headache, unspecified (principal); I10 Essential (primary) hypertension; R09.89 Other specified symptoms and signs involving the circulatory and respiratory systems; R10.9 Unspecified abdominal pain; M79.7 Fibromyalgia; J45.909 Unspecified asthma, uncomplicated; K21.9 Gastro-esophageal reflux disease without esophagitis; E78.00 Pure hypercholesterolemia, unspecified; F32.A Depression, unspecified; F41.9 Anxiety disorder, unspecified; G47.30 Sleep apnea, unspecified; K31.84 Gastroparesis; G89.4 Chronic pain syndrome; F12.90 Cannabis use, unspecified, uncomplicated; Z95.5 Presence of coronary angioplasty implant and graft; Z87.891 Personal history of nicotine dependence; Z88.5 Allergy status to narcotic agent; Z88.8 Allergy status to other drugs, medicaments and biological substances; Z88.6 Allergy status to analgesic agent; Z88.1 Allergy status to other antibiotic agents; Z91.040 Latex allergy status
CPT/HCPCS: 99284; 96374; 96375 ×2; 80053; 85025; 93005

== ENCOUNTER → 2025-02-28 14:11 | Outpatient (REF) | payer MEDICARE, OTHER, SELFPAY | LOC: RAD 14:11 | PROVIDERS: ATTENDING PHYSICIAN Internal Medicine | DX: M25.562 Pain in left knee (principal) | CPT/HCPCS: 73564 ==